=== PATIENT | female | born 1925 | race Caucasian/White ===

== ENCOUNTER 2017-06-18 08:09 | Inpatient (IN) | payer MEDICARE ==
[~2017-06-18] VITALS: Ht 157.5 cm; Wt 60.8 kg
[2017-06-18] MEDS ORDERED: RIVA10TA PO (08:28)
[2017-06-18] MEDS ORDERED: PROP150T2 PO (08:30)
[2017-06-18] MEDS ORDERED: METO25TA6 PO (08:30)
[2017-06-18] MEDS ORDERED: IV NS 0.9% 1,000 ML BAG IV ONE (08:30)
[2017-06-18] MEDS ORDERED: SPIR25TA PO (08:30)
[2017-06-18] MEDS ORDERED: MEMA10TA PO (08:30)
[2017-06-18] MEDS ORDERED: QUET25TA PO (08:30)
[2017-06-18] MEDS ORDERED: LEVO137T24 PO (08:30)
[2017-06-18] MEDS ORDERED: ATOR20TA PO (08:30)
[2017-06-18 08:47] LABS: BASOPHILS % (AUTO) 0.1 % (0.0-2.0); HEMATOCRIT 33 % (33-45); HEMOGLOBIN 10.9 g/dL (11.5-14.8); LYMPHOCYTES # (AUTO) 0.4 /CMM (0.8-4.8); LYMPHOCYTES % (AUTO) 4.4 % (20.0-44.0); MEAN CORPUSCULAR HEMOGLOBIN 28 PG (26.0-33.0); MEAN CORPUSCULAR HGB CONC 33 g/dl (31.0-36.0); MEAN CORPUSCULAR VOLUME 85 fL (82-100); MONOCYTES # (AUTO) 0.5 /CMM (0.1-1.30); MONOCYTES % (AUTO) 5.7 % (2.0-12.0); NEUTROPHILS # (AUTO) 8.3 /CMM (1.8-8.9); NEUTROPHILS % (AUTO) 89.8 % (43.0-81.0); PLATELET COUNT (AUTO) 158 /CMM (150-450); RDW COEFFICIENT OF VARIATION 15.4 (11.5-15.0); RED BLOOD CELL COUNT(AUTO) 3.85 MIL/uL (4.0-5.2); WHITE BLOOD COUNT (AUTO) 9.3 K/uL (4.3-11.0)
[2017-06-18 08:58] LABS: CALCIUM, SERUM 9.1 mg/dL (8.5-10.1); CARBON DIOXIDE 24 mmol/L (21-32); CHLORIDE 102 mmol/L (98-107); CREATININE 1.6 mg/dL (0.6-1.3); GLUCOSE 199 mg/dL (74-106); POTASSIUM 4.2 mmol/L (3.5-5.1); SODIUM SERUM 137 mmol/L (136-145); UREA NITROGEN, BLOOD 21 mg/dL (7-18)
[2017-06-18 09:04] LABS: ALANINE AMINOTRANSFERASE 37 U/L (12-78); ALBUMIN 3.6 g/dL (3.4-5.0); ALKALINE PHOSPHATASE 105 U/L (46-116); ASPARTATE AMINOTRANSFERASE 49 U/L (15-37); BILIRUBIN,DIRECT 0.1 mg/dL (0.0-0.2); BILIRUBIN,TOTAL 0.3 mg/dL (0.2-1.0); TOTAL PROTEIN, SERUM 7.5 g/dL (6.4-8.2)
[2017-06-18 09:05] LABS: TROPONIN I < 0.017 ng/mL (0.00-0.056)
[2017-06-18 09:06] LABS: INR 1.04 (0.87-1.13); PROTHROMBIN TIME 10.8 SECS (9.5-12.7)
[2017-06-18] MEDS ORDERED: ACETAMINOPHEN 325 MG TABLET PO PRN (10:00)
[2017-06-18] MEDS ORDERED: MAGNESIUM HYDROXIDE 30 ML UDC PO PRN (10:00)
[2017-06-18] MEDS ORDERED: Z GUARD REMEDY 2 OZ OINT TP PRN (10:00)
[2017-06-18] MEDS ORDERED: ZOLPIDEM TARTRATE 5 MG TABLET PO PRN (10:00)
[2017-06-18] MEDS ORDERED: ONDANSETRON HCL/PF 4 MG/2 ML VIAL IVP PRN (10:00)
[2017-06-18] MEDS ORDERED: MAG HYDROX/AL HYDROX/SIMETH 30 ML UDC PO PRN (10:00)
[2017-06-18 10:07] LABS: CREATINE KINASE MB 16.1 ng/mL (0-3.6)
[2017-06-18] MEDS ORDERED: METO-356 PO (10:09)
[2017-06-18] MEDS ORDERED: LEVO112T2 PO (10:09)
[2017-06-18] MEDS ORDERED: HYDROCODONE/APAP 5/325MG 1 EACH TABLET ONE (14:07)
[2017-06-18] MEDS: HYDROCODONE/APAP 5/325MG 1 EACH TABLET PO PRN (14:08)
[2017-06-18] MEDS: IV NS 0.9% 1,000 ML IV PRN (17:59)
[2017-06-18 20:00] VITALS: BP 103/62
[2017-06-18] MEDS ORDERED: MENTHOL/CETYLPYRD (CEPACOL) 1 LOZ LOZENGE PO PRN (20:30)
[2017-06-19] VITALS (7 sets, daily range): BP systolic 107–122; BP diastolic 51–73
[2017-06-19] MEDS: HYDROCODONE/APAP 5/325MG 1 EACH TABLET PO PRN (04:46)
[2017-06-19 07:53] LABS: BASOPHILS % (AUTO) 0.1 % (0.0-2.0); EOSINOPHILS % (AUTO) 0.1 % (0.0-6.0); HEMATOCRIT 31 % (33-45); HEMOGLOBIN 10.4 g/dL (11.5-14.8); LYMPHOCYTES # (AUTO) 0.9 /CMM (0.8-4.8); LYMPHOCYTES % (AUTO) 16.5 % (20.0-44.0); MEAN CORPUSCULAR HEMOGLOBIN 28 PG (26.0-33.0); MEAN CORPUSCULAR HGB CONC 34 g/dl (31.0-36.0); MEAN CORPUSCULAR VOLUME 84 fL (82-100); MONOCYTES # (AUTO) 0.8 /CMM (0.1-1.30); MONOCYTES % (AUTO) 14.3 % (2.0-12.0); PLATELET COUNT (AUTO) 141 /CMM (150-450); RDW COEFFICIENT OF VARIATION 14.3 (11.5-15.0); RED BLOOD CELL COUNT(AUTO) 3.65 MIL/uL (4.0-5.2); WHITE BLOOD COUNT (AUTO) 5.7 K/uL (4.3-11.0)
[2017-06-19 09:01] LABS: CHOLESTEROL 132 mg/dL (<200); CREATINE KINASE MB 25.3 ng/mL (0-3.6); HDL CHOLESTEROL 68 mg/dL (40-60); LDL 53 mg/dL (0-99); THYROID STIMULATING HORMONE 3.171 uIU/mL (0.358-3.74); TRIGLYCERIDES 66 mg/dL (30-150)
[2017-06-19 09:10] LABS: ALANINE AMINOTRANSFERASE 72 U/L (12-78); ALBUMIN 2.5 g/dL (3.4-5.0); ALKALINE PHOSPHATASE 82 U/L (46-116); ASPARTATE AMINOTRANSFERASE 160 U/L (15-37); BILIRUBIN,TOTAL 0.2 mg/dL (0.2-1.0); CALCIUM, SERUM 7.8 mg/dL (8.5-10.1); CARBON DIOXIDE 22 mmol/L (21-32); CHLORIDE 105 mmol/L (98-107); CREATININE 1.2 mg/dL (0.6-1.3); GLUCOSE 96 mg/dL (74-106); MAGNESIUM 1.6 mg/dL (1.8-2.4); PHOSPHORUS 2.8 mg/dL (2.5-4.9); POTASSIUM 3.7 mmol/L (3.5-5.1); SODIUM SERUM 138 mmol/L (136-145); TOTAL PROTEIN, SERUM 5.7 g/dL (6.4-8.2); UREA NITROGEN, BLOOD 20 mg/dL (7-18)
[2017-06-19] MEDS: IV NS 0.9% 1,000 ML IV PRN (10:40)
[2017-06-19] MEDS: LEVOTHYROXINE SODIUM 112 MCG TABLET PO SCH (11:30)
[2017-06-19] MEDS: MEMANTINE HCL 5 MG TABLET PO SCH ×2 (12:19→17:07)
[2017-06-19] MEDS: SPIRONOLACTONE 25 MG TABLET PO SCH ×2 (12:21→17:07)
[2017-06-19] MEDS: RIVAROXABAN 10 MG TABLET PO SCH (12:21)
[2017-06-19] MEDS: ACETAMINOPHEN 325 MG TABLET PO SCH ×3 (12:22→23:59)
[2017-06-19] MEDS: METOPROLOL SUCCINATE 25 MG TAB.SR.24H PO SCH (12:22)
[2017-06-19] MEDS: PROPAFENONE HCL 150 MG TABLET PO SCH ×2 (14:06→17:51)
[2017-06-19] MEDS ORDERED: FEE PK DOSING 1 MIN EA MC ONE (14:28)
[2017-06-19] MEDS: Magnesium 1GM/D5W 100ML PREMIX 100 ML IV SCH ×2 (16:13→18:46)
[2017-06-19] MEDS: CEFTRIAXONE 1 G in IV D5W 50 ML IV SCH (17:09)
[2017-06-19] MEDS: VANCOMYCIN 1 GM in IV D5W 250 ML IV SCH (17:45)
[2017-06-19] MEDS: QUETIAPINE FUMARATE 25 MG TABLET PO SCH (21:59)
[2017-06-20] MEDS: IV NS 0.9% 1,000 ML IV PRN (06:00)
[2017-06-20] MEDS: ACETAMINOPHEN 325 MG TABLET PO SCH ×3 (06:00→17:27)
[2017-06-20 08:00] VITALS: BP 134/65
[2017-06-20 08:40] LABS: CALCIUM, SERUM 8.2 mg/dL (8.5-10.1); CARBON DIOXIDE 24 mmol/L (21-32); CHLORIDE 108 mmol/L (98-107); CREATININE 1.1 mg/dL (0.6-1.3); GLUCOSE 102 mg/dL (74-106); MAGNESIUM 2.4 mg/dL (1.8-2.4); SODIUM SERUM 140 mmol/L (136-145); UREA NITROGEN, BLOOD 15 mg/dL (7-18)
[2017-06-20] MEDS: LEVOTHYROXINE SODIUM 112 MCG TABLET PO SCH (09:09)
[2017-06-20] MEDS: MEMANTINE HCL 5 MG TABLET PO SCH ×2 (09:09→17:27)
[2017-06-20] MEDS: RIVAROXABAN 10 MG TABLET PO SCH (09:10)
[2017-06-20] MEDS: SPIRONOLACTONE 25 MG TABLET PO SCH ×2 (09:10→17:27)
[2017-06-20] MEDS: METOPROLOL SUCCINATE 25 MG TAB.SR.24H PO SCH (09:11)
[2017-06-20] MEDS: PROPAFENONE HCL 150 MG TABLET PO SCH ×3 (09:16→17:27)
[2017-06-20 11:07] LABS: CREATINE KINASE MB 8.5 ng/mL (0-3.6)
[2017-06-20] MEDS: CEFTRIAXONE 1 G in IV D5W 50 ML IV SCH (14:57)
[2017-06-20 16:00] VITALS: BP 105/59
[2017-06-20] MEDS: VANCOMYCIN 1 GM in IV D5W 250 ML IV SCH (16:11)
[2017-06-20] MEDS: QUETIAPINE FUMARATE 25 MG TABLET PO SCH (21:28)
[2017-06-20] MEDS ORDERED: ATORVASTATIN 10 MG TABLET PO SCH (22:00)
[2017-06-21] MEDS: ACETAMINOPHEN 325 MG TABLET PO SCH ×4 (00:26→17:33)
[2017-06-21] MEDS: IV NS 0.9% 1,000 ML IV PRN (05:05)
[2017-06-21 06:54] LABS: CARBON DIOXIDE 24 mmol/L (21-32); CHLORIDE 106 mmol/L (98-107); CREATININE 1.1 mg/dL (0.6-1.3); GLUCOSE 92 mg/dL (74-106); POTASSIUM 4.2 mmol/L (3.5-5.1); SODIUM SERUM 139 mmol/L (136-145); UREA NITROGEN, BLOOD 16 mg/dL (7-18)
[2017-06-21 08:00] VITALS: BP 124/66
[2017-06-21] MEDS: MEMANTINE HCL 5 MG TABLET PO SCH ×2 (08:29→17:34)
[2017-06-21] MEDS: RIVAROXABAN 10 MG TABLET PO SCH (08:33)
[2017-06-21] MEDS: LEVOTHYROXINE SODIUM 112 MCG TABLET PO SCH (08:33)
[2017-06-21 08:34] VITALS: BP 124/56
[2017-06-21] MEDS: METOPROLOL SUCCINATE 25 MG TAB.SR.24H PO SCH (08:34)
[2017-06-21] MEDS: SPIRONOLACTONE 25 MG TABLET PO SCH ×2 (08:34→17:34)
[2017-06-21] MEDS: PROPAFENONE HCL 150 MG TABLET PO SCH ×3 (08:57→17:00)
[2017-06-21 10:56] LABS: CREATINE KINASE MB 3.1 ng/mL (0-3.6)
[2017-06-21] MEDS ORDERED: GUAIFENESIN/D-METHORPHAN HB 5 ML UDC PO PRN (13:00)
[2017-06-21] MEDS: CEFTRIAXONE 1 G in IV D5W 50 ML IV SCH (13:52)
[2017-06-21] MEDS: VANCOMYCIN 1 GM in IV D5W 250 ML IV SCH (15:20)
== END 2017-06-21 18:15 | DRG 557 ==
LOC: ER 08:10 → TRANSITION 12:11 → UNDOADMIN 12:11 → TELE 12:11 → MED 06-19 16:07
PROVIDERS: ADMIT Internal Medicine; ATTEND Internal Medicine
DX: M62.82 Rhabdomyolysis (principal); N17.0 Acute kidney failure with tubular necrosis; D68.59 Other primary thrombophilia; E11.22 Type 2 diabetes mellitus with diabetic chronic kidney disease; I48.91 Unspecified atrial fibrillation; T79.A0XA Compartment syndrome, unspecified, initial encounter; L03.114 Cellulitis of left upper limb; Z86.73 Personal history of transient ischemic attack (TIA), and cerebral infarction without residual deficits; I12.9 Hypertensive chronic kidney disease with stage 1 through stage 4 chronic kidney disease, or unspecified chronic kidney disease; N18.9 Chronic kidney disease, unspecified; E03.9 Hypothyroidism, unspecified; Z79.899 Other long term (current) drug therapy; Z79.01 Long term (current) use of anticoagulants; M79.2 Neuralgia and neuritis, unspecified; X58.XXXA Exposure to other specified factors, initial encounter
CPT/HCPCS: 36415; 70450-TC; 71045; 73090-TC; 73200-TC; 80048-TC; 80053-TC; 80061-TC; 80076-TC; 80202-TC; 82550-TC; 82553-TC; 83605-TC; 83735-TC; 84100-TC; 84443-TC; 84484-TC; 85025-TC; 85730-TC; 87040-TC; 87081-TC; 97110-TC; 97116-TC; 97530-TC; A4606; J0696; J2405; J3370; J3475; J7030; J7060; Z7610